=== PATIENT | male | born 1975 | race Hispanic/Latino ===

== ENCOUNTER 2017-08-07 10:05 | Emergency (ER) | payer SELFPAY ==
[2017-08-07 10:11] VITALS: TEMP 97.6; O2SAT 100
--- NOTE | 2017-08-07 10:18 | ED PDOC ---
Arrival/HPI - General Chief Complaint: ENT Problem Time Seen by Provider: 08/07/17 10:14 Historian: Patient - History of Present Illness Narrative History of Present Illness (Text): 08/07/17 10:14 41 y/o male, no significant pmh, nkda, c/o possible swallow fish bone around 7am this morning. Pt. stated that he was eating cob fish this morning as breakfast with bone on the fish, been having pain and tried to swallow with bread with limited relief, no night sweat, no dizziness, no drooling, able to drink fluid and swallow solid, speaking in full sentences, no night sweat, no other medical or psychological complaints. Past Medical History - Provider Review Nursing Documentation Reviewed: Yes - Infectious Disease Hx of Infectious Diseases: None - Psychiatric Hx Substance Use: No - Anesthesia Hx Anesthesia: No Family/Social History - Physician Review Nursing Documentation Reviewed: Yes Family/Social History: Unknown Family HX Smoking Status: Never Smoked Hx Alcohol Use: Yes Frequency of alcohol use: Socially Hx Substance Use: No Allergies/Home Meds Allergies/Adverse Reactions: Allergies No Known Allergies Allergy (Verified 08/07/17 10:09) Review of Systems - Review of Systems Constitutional: absent: Fatigue, Fevers Eyes: absent: Vision Changes ENT: Sore Throat. absent: Hearing Changes Respiratory: absent: SOB, Cough Cardiovascular: absent: Chest Pain Gastrointestinal: absent: Abdominal Pain, Nausea, Vomiting Musculoskeletal: absent: Arthralgias, Back Pain, Myalgias Skin: absent: Rash, Pruritis Neurological: absent: Headache, Dizziness Psychiatric: absent: Anxiety, Depression Physical Exam Vital Signs Reviewed: Yes Vital Signs Temp Pulse Resp BP Pulse Ox 08/07/17 11:40 69 18 148/89 100 08/07/17 10:10 97.6 F 72 15 154/92 H 100 Temperature: Afebrile Blood Pressure: Hypertensive Pulse: Regular Respiratory Rate: Normal Appearance: Positive for: Well-Appearing, Non-Toxic, Comfortable Pain Distress: Mild Mental Status: Positive for: Alert and Oriented X 3 - Systems Exam Head: Present: Atraumatic, Normocephalic Pupils: Present: PERRL Extroacular Muscles: Present: EOMI Conjunctiva: Present: Normal Ears: Present: NORMAL TM, Normal Canal. No: Erythema Mouth: Present: Moist Mucous Membranes Pharnyx: Present: Other (no visible foreign bodies). No: ERYTHEMA, EXUDATE, TONSILS ENLARGED, Peritonsilar Swelling, Uvular Deviation, Muffled/Hoarse Voice , Strider, Soft Palate/Uvular Edema Nose (Internal): Present: Normal Inspection, No Active Bleeding. No: Rhinorrhea Neck: Present: Normal Range of Motion, Trachea Midline. No: MIDLINE TENDERNESS , Lymphadenopathy Respiratory/Chest: Present: Clear to Auscultation, Good Air Exchange. No: Respiratory Distress, Accessory Muscle Use, Wheezes, Retracting, Rhonchi Cardiovascular: Present: Regular Rate and Rhythm, Normal S1, S2. No: Murmurs Abdomen: Present: Normal Bowel Sounds. No: Tenderness, Distention, Peritoneal Signs, Rebound, Guarding Back: Present: Normal Inspection. No: CVA Tenderness, Midline Tenderness Upper Extremity: Present: Normal Inspection. No: Cyanosis, Edema Lower Extremity: Present: Normal Inspection. No: Edema Neurological: Present: GCS=15, Speech Normal, Motor Func Grossly Intact, Gait Normal, Memory Normal Skin: Present: Warm, Dry, Normal Color. No: Rashes Psychiatric: Present: Alert, Oriented x 3, Normal Insight, Normal Concentration Medical Decision Making ED Course and Treatment: 08/07/17 10:22 -CT soft tissue neck -observe and reassess 08/07/17 11:48 -CT soft tissue neck show No visulaized radiopaque/visualized foreign body. Remaining additional findings discussed with the patient as well as he will need ENT and pmd follow up. -ENT paged 08/07/17 11:54 -I spoke to Dr. Luna which he is second operator today, discussed about the case/CT result, suggest to discharge home with no antibiotics and just prescribe mylanta for the patient, have the patient call him tomorrow. -Pt. is able to swallow po solid and fluid, no drooling, airway patent, discussed about the ENT consult, agreed to be discharge home. -I discussed with and he agreed on the treatment/discharge plan. -Discharge home with mylanta, soft food diet, puree food diet, follow up with Dr. Luna tomorrow by calling first and PMD within 2 days, return to the ER for any new or worsening signs or symptoms. - RAD Interpretation Radiology Orders: 08/07/17 10:32 NECK SOFT TISSUE W/O CONTRAST [CT] Stat FINDINGS: NASOPHARYNX: Unremarkable. SUPRAHYOID NECK: Unremarkable oropharynx, oral cavity, parapharyngeal space and retropharyngeal space.Incidental finding(s): Punctate calcifications within the right palate seen tonsil. Palate seen tonsils are mildly prominent bilaterally. INFRAHYOID NECK: Unremarkable larynx, hypopharynx, and supraglottic space. Vocal cords intact. MASS: None. GLANDS: Parotid and submandibular glands unremarkable. Normal size thyroid gland, without nodule. LYMPH NODES: Subcentimeter lymph nodes level V the left side. CERVICAL SPINE: No fracture or focal lesion. OTHER FINDINGS: None. IMPRESSION: No visulaized radiopaque/visualized foreign body. Additional benign and/or incidental findings described above. Skirt Trimmer: Radiologist - PA / DRY CLEANING CHECKER / Resident Statement / has reviewed & agrees with the documentation as recorded. Disposition/Present on Arrival - Present on Arrival Any Indicators Present on Arrival: No History of DVT/PE: No History of Uncontrolled Diabetes: No Urinary Catheter: No History of Decub. Ulcer: No History Surgical Site Infection Following: None - Disposition Have Diagnosis and Disposition been Completed?: Yes Diagnosis: Throat pain, Abnormal CT scan Disposition: HOME/ ROUTINE Disposition Time: 11:57 Patient Plan: Discharge Condition: IMPROVED Additional Instructions: -Discharge home with mylanta, soft food diet, puree food diet, follow up with Dr. Luna tomorrow by calling first and PMD within 2 days, return to the ER for any new or worsening signs or symptoms. Prescriptions: Aluminum Hydroxide/Magnesium H [Maalox 30 ml] 15 ml PO QID PRN #200 ml PRN Reason: Other Referrals: Sheela Fuller MD [Primary Care Provider] - Follow up with primary Cruz Luna DO [[facility]] - Follow up with primary Forms: WORK NOTE
--- NOTE | 2017-08-07 11:39 | CT ---
PROCEDURE: CT NECK WITHOUT CONTRAST HISTORY: neck/throat foreign body (fish bone) sensation COMPARISON: None. TECHNIQUE: CT of the neck without intravenous contrast. Coronal and sagittal reformats generated. Radiation dose: DLP 405.11 mGy-cm This CT exam was performed using one or more of the following dose reduction techniques: Automated exposure control, adjustment of the mA and/or kV according to patient size, and/or use of iterative reconstruction technique. FINDINGS: NASOPHARYNX: Unremarkable. SUPRAHYOID NECK: Unremarkable oropharynx, oral cavity, parapharyngeal space and retropharyngeal space.Incidental finding(s): Punctate calcifications within the right palate seen tonsil. Palate seen tonsils are mildly prominent bilaterally. INFRAHYOID NECK: Unremarkable larynx, hypopharynx, and supraglottic space. Vocal cords intact. MASS: None. GLANDS: Parotid and submandibular glands unremarkable. Normal size thyroid gland, without nodule. LYMPH NODES: Subcentimeter lymph nodes level V the left side. CERVICAL SPINE: No fracture or focal lesion. OTHER FINDINGS: None. IMPRESSION: No visulaized radiopaque/visualized foreign body. Additional benign and/or incidental findings described above.
[2017-08-07 11:40] VITALS: RESP 18
[2017-08-07 12:06] VITALS: BP 156/96; PULSE 72
== END 2017-08-07 12:13 | disposition home or self-care (01) ==
LOC: ED 10:05
DX: R07.0 Pain in throat (principal); R94.8 Abnormal results of function studies of other organs and systems